=== PATIENT | female | born 1950 | race Caucasian/White ===

== ENCOUNTER 2017-01-11 06:18 | Inpatient (IN) | payer OTHER ==
[2016-12-12 07:59] VITALS: BMI 51.0
--- NOTE | 2016-12-12 08:40 | PAT Medication Instructions ---
Service Date Dec 12, 2016. Current Home Medication List Ezetimibe (Zetia), 5 MG PO HS Glipizide (Glipizide Er), 1 TAB PO BID Hydrochlorothiazide (Hydrochlorothiazide), 1 TAB PO QAM Latanoprost 0.005% Oph (Xalatan 0.005% Oph), 1 DROP OPB HS Lisinopril (Zestril), 40 MG PO HS Meloxicam (Mobic), Unknown Dose PO QAM Metformin Hcl (Glucophage), 1,000 MG PO BID Simvastatin (Zocor), 10 MG PO HS Medication Instructions For Your Scheduled Surgery - Hold the following medications 10 days prior to surgery per surgeon's instructions: Meloxicam (Mobic), Unknown Dose PO QAM - Hold the following medications 48 hours prior to surgery: Metformin Hcl (Glucophage), 1,000 MG PO BID - Hold the following medications the morning of surgery: Glipizide (Glipizide Er), 1 TAB PO BID Hydrochlorothiazide (Hydrochlorothiazide), 1 TAB PO QAM - Take the following medications as scheduled the night before surgery: Ezetimibe (Zetia), 5 MG PO HS Simvastatin (Zocor), 10 MG PO HS Glipizide (Glipizide Er), 1 TAB PO BID Latanoprost 0.005% Oph (Xalatan 0.005% Oph), 1 DROP OPB HS - Do not take the following medications the night before surgery: Lisinopril (Zestril), 40 MG PO HS If you have any questions please call us at [phone] or [phone] or [phone]
[2016-12-12 09:02] LABS: BASO % 0.3 %; BASO ABS # 0.02 K/uL (0-0.2); COMPLETE YES; EOS % 4.1 %; HEMATOCRIT 40.4 % (37-47); IG% 0.4 %; LYMPH % 36.2 %; LYMPH ABS # 2.74 K/uL (1.2-3.4); MEAN CELL VOLUME 88.2 fL (80-100); MEAN CORPUSCULAR HEMOGLOBIN 29.7 pg (25-34); MEAN CORPUSCULAR HGB CONC 33.7 g/dl (32-36); MONO % 6.6 %; NEUT % 52.4 %; PLATELET COUNT 224 K/uL (130-400); RED BLOOD COUNT 4.58 M/uL (4.2-5.4); WHITE BLOOD COUNT 7.57 K/uL (4.8-10.8)
--- NOTE | 2016-12-12 09:04 | DIAGNOSTIC IMAGING REPORT ---
CHEST PREADMISSION(PA/LAT) CLINICAL HISTORY: PAT preoperative evaluation COMPARISON STUDY: No previous studies for comparison. FINDINGS: The bones soft tissues and hemidiaphragms are normal. The cardiomediastinal silhouette is normal. The lungs are clear. The pulmonary vasculature is normal. IMPRESSION: Negative chest. Electronically signed by: Yony Kirk M.D. 12/12/2016 9:03 AM Dictated Date/Time: 12/12/2016 9:02 AM
[2016-12-12 09:19] LABS: PROTHROMBIN TIME (PATIENT) 10.2 SECONDS (9.0-12.0)
[2016-12-12 09:43] LABS: ESTIMATED AVERAGE GLUCOSE 237 mg/dl; HA1C FLAG Normal (Normal)
[2016-12-12 10:46] LABS: BUN/CREATININE RATIO 18.9 (10-20); C-REACTIVE PROTEIN 1.73 mg/dl (0-0.29); POTASSIUM 4.4 mmol/L (3.5-5.1)
[2016-12-12 10:49] LABS: CALCIUM 9.2 mg/dl (8.5-10.1)
[2016-12-12 10:56] LABS: BETA-HYDROXYBUTYRATE 1.63 mg/dL (0.2-2.81)
[2016-12-27 09:29] VITALS: BMI 51.1
--- NOTE | 2017-01-09 10:11 | History and Physical ---
History & Physical Documentation Date Jan 09, 2017. Chief Complaint Right knee pain HPI (Knee Pain) Pain Location: Anterior knee, Medial knee Duration: Years Adversely Affecting: ADL's, Work, Recreation Symptoms Include: + Pain, + Giving way History of Injury/Trauma: Uncertain Non-Surgical Therapies: Behavior modification, Weight management, Exercise program Mechanical Assistive Devices: other (cane), none Joint Injection: Steroid, Visco Prior Orthopedic Procedures: None Past Medical/Surgical History Diabetes Obesity with BMI of 51 HTN Elevated cholesterol Tubal Ligation Cholecystectomy Carpal Tunnel Release Additional History Hepatic Disease: No Endocrine Disorder: Yes Kidney Disease: No Hypertension: Yes Heart Disease: No Bleeding Tendencies: No Infectious Diseases: No Family History No Heart disease, No Pulmonary disease, No Anesthesia difficulties, No Bleeding tendencies Social History Smoking Status: Never Smoker Smokeless Tobacco Use: No Drug Use: none Marital Status: single Allergies Coded Allergies: Aspirin (Verified Adverse Reaction, Unknown, NOSEBLEEDS A CHILD, ) Home Medications Scheduled Ezetimibe (Zetia), 5 MG PO HS Glipizide (Glipizide Er), 1 TAB PO BID Hydrochlorothiazide (Hydrochlorothiazide), 1 TAB PO QAM Latanoprost 0.005% Oph (Xalatan 0.005% Oph), 1 DROP OPB HS Lisinopril (Zestril), 40 MG PO HS Meloxicam (Mobic), Unknown Dose PO QAM Metformin Hcl (Glucophage), 1,000 MG PO BID Simvastatin (Zocor), 10 MG PO HS Review of Systems Constitutional: No fever, No chills, No sweats, No weight loss, No weakness, No fatigue, No problem reported Respiratory: No cough, No sputum, No wheezing, No shortness of breath, No dyspnea on exertion, No dyspnea at rest, No hemoptysis, No problem reported Cardiovascular: No chest pain, No orthopnea, No PND, No edema, No claudication , No palpitations, No problem reported Genitourinary - Female: No dysuria, No urinary frequency, No urinary urgency, No urinary incontinence, No urinary retention, No hematuria, No dysmenorrhea, No menorrhagia, No metrorrhagia, No rash, No vaginal bleeding, No vaginal discharge, No vaginal itching, No vulvodynia, No , No problem reported Neurologic: No memory loss, No paralysis, No weakness, No numbness/tingling, No vertigo, No balance problems, No problem reported Physical Exam Skin: warm/dry, no rash Eyes: normal inspection, EOMI, sclerae normal ENT: normal ENT inspection Head: normocephalic, atraumatic Neck: supple, no adenopathy Respiratory/Chest: lungs clear Cardiovascular: regular rate, rhythm Abdomen / GI: normal bowel sounds Back: normal inspection Neurovascular: Warm, Dry, Normal perfusion Neurologic/Psych: no motor/sensory deficits Physical Exam (Knee) Inspection: + Effusion, + pertinent finding (Slight stasis changes) Gait: + Limp, + Antalgic Range of Motion: With crepitation Alignment: + Genu varum Tenderness: Medial joint line, Infrapatellar Radiology Plain Films: Osteophytes, Subchondral sclerosis, Subluxation Plain Films Joint Space: [id number], Severe narrowing Diagnosis & Plan Diagnosis & Plan (1) Advanced Right Knee DJD Plan: TKA Right TKR. RIsks and benefits explained. Increased risk due to obesity and diabetes. Patient aware and wants to proceed.
[2017-01-11] VITALS (7 sets, daily range): BP systolic 91–116; BP diastolic 53–75; PULSE 62–80; TEMP 36.7–36.8; O2SAT 95–99; BMI 51.0
[~2017-01-11] VITALS: Ht 154.9 cm; Wt 122.7 kg
[~2017-01-11 06:18] MED LIST: ACETAMINOPHEN 500 MG TAB PO SCH; BUPIVACAINE LIPOSOME 266 MG, BUPIVACAINE/EPINEPHRINE INJ 50 ML, SODIUM CHLORIDE 0.9% PF... INFIL SCH; CEFAZOLIN 2000 MG/60 ML D5W 60 ML IV SCH; CEFAZOLIN 3000 MG/65 ML D5W IV SCH; EZET10TA63 PO; FAMOTIDINE 20 MG TAB PO SCH; GABAPENTIN 300 MG CAP PO SCH; HYDR12.55 PO; INSU3INJ2 SC; LACTATED RINGER'S 1000ML IV SCH; LACTATED RINGER'S 500 ML IV SCH; LATA0.009 OPB; LISI40TA PO; MELO7.5T5 PO; METF1000 PO; METF500T PO; METOCLOPRAMIDE HCL 10 MG TAB PO SCH; SCOPOLAMINE 1.5 MG TDSY TD SCH; SIMV10TA2 PO; TRANEXAMIC ACID INJ 1,000 MG in SODIUM CHLORIDE 0.9% 100ML 100 ML IV SCH
--- NOTE | 2017-01-11 06:53 | History & Physical Bridge Note ---
H&P Re-Evaluation Bridge Note: I have examined the patient, reviewed the History & Physical and in the interval since the performance of the History & Physical I have noted the following changes of clinical significance: No changes noted
[2017-01-11] MEDS ORDERED: LACTATED RINGER'S 1000ML 1,000 ML IV SCH (07:00)
[2017-01-11] MEDS ORDERED: BUPIVACAINE 0.5 % 5 MG/1 ML PF 10ML VIAL ONE (07:09)
[2017-01-11] MEDS ORDERED: BUPIVACAINE 0.25% 30 ML VIAL ONE (07:09)
[2017-01-11] MEDS ORDERED: MIDAZOLAM HCL 1 MG/ML 2ML VIAL ONE (07:28)
[2017-01-11] MEDS ORDERED: BACITRACIN 50000 UNIT VIAL ONE (08:37)
[2017-01-11] MEDS ORDERED: SODIUM CHLORIDE 0.9% PF 50 ML VIAL ONE (08:37)
[2017-01-11] MEDS ORDERED: BUPIVACAINE/EPINEPHRINE 0.25% 1:200,000 30 ML VIAL ONE (08:37)
[2017-01-11] MEDS ORDERED: BUPIVACAINE LIPOSOME 1/3% 266 MG/20 ML VIAL INFIL ONE (08:38)
[2017-01-11] MEDS ORDERED: VANCOMYCIN HCL 1000MG/20ML VIAL ONE (08:38)
[2017-01-11] MEDS ORDERED: LIDOCAINE HCL 2% 2 ML VIAL (20MG/ML) ONE (08:55)
[2017-01-11] MEDS ORDERED: PROPOFOL IV EMULSION 10 MG/ML 20 ML VIAL IV ONE ×2 (08:55→10:32)
[2017-01-11] MEDS ORDERED: HYDROmorphone INJ 2 MG/ML SYR/VIAL IV PRN (09:15)
[2017-01-11] MEDS ORDERED: ONDANSETRON INJ 2 MG/ML 2 ML VIAL IV PRN ×2 (09:15→11:00)
[2017-01-11] MEDS ORDERED: PHENYLEPHRINE 100MCG/ML 5ML SYR IV PRN (09:15)
[2017-01-11] MEDS ORDERED: ATROPINE SULFATE 0.1 MG/ML 5ML SYR IV PRN (09:15)
[2017-01-11] MEDS ORDERED: KETOROLAC TROMETHAMINE 30 MG/ML VIAL IV. PRN (09:15)
[2017-01-11] MEDS ORDERED: EpHEDrine SULFATE INJ 50 MG/ML AMP IV PRN (09:15)
[2017-01-11] MEDS ORDERED: ZOLPIDEM TARTRATE 5 MG TAB PO PRN (11:00)
[2017-01-11] MEDS ORDERED: GLUCOSE 40% GEL 15 GM TUBE PO PRN (11:00)
[2017-01-11] MEDS ORDERED: ALUMINUM/MAGNESIUM/SIMETH (MAALOX MAX) 30 ML UDC PO PRN (11:00)
[2017-01-11] MEDS ORDERED: BISACODYL 10 MG SUPP PR PRN (11:00)
[2017-01-11] MEDS ORDERED: HYDROmorphone INJ 0.5 MG/0.5 ML SYR IV PRN (11:00)
[2017-01-11] MEDS ORDERED: METOCLOPRAMIDE HCL INJ 5 MG/ML 2 ML VIAL IV PRN (11:00)
[2017-01-11] MEDS ORDERED: SILVER SULFADIAZINE 1% CR 50 GM JAR EXT PRN (11:00)
[2017-01-11] MEDS ORDERED: DEXTROSE 50% 50 ML SYR IV PRN (11:00)
[2017-01-11] MEDS ORDERED: GLUCAGON FOR INJ 1 MG VIAL SQ PRN (11:00)
[2017-01-11] MEDS ORDERED: GLUCOSE 10 TABS/TUBE PO PRN (11:00)
--- NOTE | 2017-01-11 11:26 | DIAGNOSTIC IMAGING REPORT ---
RIGHT KNEE 1 OR 2 VIEWS ROUTINE CLINICAL HISTORY: AP/LATERAL IN PACU RIGHT KNEE Right postoperative evaluation COMPARISON: None. DISCUSSION: Status post total joint revision. There is a longstem tibial prosthesis. Good contact between prosthetic and underlying bone. Surgical drains in position. Expected soft tissue postoperative change. IMPRESSION: Anatomic alignment status post total right knee replacement The above report was generated using voice recognition software. It may contain grammatical, syntax or spelling errors. Electronically signed by: Yony Kirk M.D. 01/11/2017 11:24 AM Dictated Date/Time: 01/11/2017 11:24 AM
--- NOTE | 2017-01-11 12:46 | Anesthesiology Progress Note ---
Anesthesia Post Op Note Date & Time Jan 11, 2017 at 12:46 Vital Signs Pain Intensity: 0 Vital Signs Past 12 Hours Date Time Temp Pulse Resp B/P (MAP) Pulse Ox O2 Delivery O2 Flow Rate FiO2 01/11/17 12:37 72 12 98 01/11/17 12:37 36.4 73 17 115/61 (70) 97 Nasal Cannula 2 01/11/17 12:37 73 12 01/11/17 12:36 115/61 01/11/17 12:32 75 15 01/11/17 12:32 75 15 98 01/11/17 12:31 115/65 01/11/17 12:27 74 13 97 01/11/17 12:27 73 13 01/11/17 12:26 104/68 01/11/17 12:24 73 13 01/11/17 12:24 74 13 98 01/11/17 12:21 113/62 01/11/17 12:19 75 15 96 01/11/17 12:19 74 15 01/11/17 12:16 112/61 01/11/17 12:14 71 11 01/11/17 12:14 70 11 97 01/11/17 12:13 72 11 01/11/17 12:13 71 11 97 01/11/17 12:11 111/66 01/11/17 12:08 67 14 01/11/17 12:08 68 14 98 01/11/17 12:06 108/85 01/11/17 12:03 68 14 01/11/17 12:03 67 14 98 01/11/17 12:01 111/67 01/11/17 11:58 73 13 01/11/17 11:58 72 13 98 01/11/17 11:56 104/68 01/11/17 11:53 69 6 98 01/11/17 11:53 69 6 01/11/17 11:51 115/69 01/11/17 11:48 68 14 98 01/11/17 11:48 70 14 01/11/17 11:46 120/65 01/11/17 11:43 66 15 100 01/11/17 11:43 66 15 01/11/17 11:41 114/65 01/11/17 11:38 75 18 01/11/17 11:38 76 18 99 01/11/17 11:37 70 16 01/11/17 11:37 70 16 99 01/11/17 11:36 114/67 01/11/17 11:34 68 12 100 01/11/17 11:34 69 12 01/11/17 11:31 113/63 01/11/17 11:29 70 15 100 01/11/17 11:29 68 15 01/11/17 11:26 109/71 01/11/17 11:24 73 13 01/11/17 11:24 73 13 100 01/11/17 11:21 108/89 01/11/17 11:19 79 18 98 01/11/17 11:19 78 18 01/11/17 11:16 125/70 01/11/17 11:14 76 16 01/11/17 11:14 78 16 99 01/11/17 11:11 111/67 01/11/17 11:09 83 15 01/11/17 11:09 86 15 100 01/11/17 11:06 111/66 01/11/17 11:05 120/62 01/11/17 11:04 81 16 01/11/17 11:04 81 16 100 01/11/17 11:04 36.4 82 16 120/62 100 Mask 10 01/11/17 07:16 36.7 80 20 116/75 96 Room Air Notes Mental Status: alert / awake / arousable, participated in evaluation Pt Amnestic to Procedure: Yes Nausea / Vomiting: adequately controlled Pain: adequately controlled Airway Patency, RR, SpO2: stable & adequate BP & HR: stable & adequate Hydration State: stable & adequate Neuraxial Anesthesia: was administered, sensory block is resolving Anesthetic Complications: no major complications apparent
--- NOTE | 2017-01-11 13:53 | OPERATIVE REPORT ---
DATE OF OPERATION: 01/11/2017 PREOPERATIVE DIAGNOSIS: Right knee degenerative joint disease. POSTOPERATIVE DIAGNOSIS: Same. PROCEDURE PERFORMED: Right cemented posterior stabilized total knee arthroplasty. SURGEON: Dr. Jossue Perez. [employer]CHO[employer] COACH: Garcia Spain PA-C. COMPLICATIONS: None. ESTIMATED BLOOD LOSS: 50 mL. FLUID REPLACEMENT: 1400 mL crystalloid fluid replacement. TOURNIQUET TIME: 89 minutes at 350 mmHg. ANESTHESIA: Spinal with adductor canal block. DRAINS: None. SPECIMENS: Right knee sent for pathology. OPERATIVE INDICATIONS: The patient is a 66-year-old female who has had a long history of bilateral knee pain and discomfort, right side a bit worse than the left. She has been through extensive conservative treatment without adequate relief. She has attempted weight loss and has been somewhat successful, but unable to lose any more. X-rays showed advanced knee DJD. The patient elected to proceed with operative treatment. OPERATIVE FINDINGS: Operative findings revealed advanced right knee DJD. She had grade 4 [id number] disease of the medial femoral condyle and medial tibial plateau. She had wear of the medial tibial plateau. She did have grade 4 changes on the lateral side as well due to the tibial femoral subluxation in the notch area, particularly. She had a large joint effusion. She had a varus deformity to her knee. OPERATIVE IMPLANTS: Operative implants consisted of: 1. Biomet Vanguard 62.5 right posterior stabilized femoral component. 2. Biomet size 67 tibial tray with a 7.5 mm offset adapter and a 12 x 80 mm fluted stem with a small cruciate wing. 3. A 10 mm posterior stabilized polyethylene insert. 4. A 31 x 8 all poly patella. OPERATIVE PROCEDURE: The patient taken to the operating room, identified and placed on the operating table in supine position. All contact areas were appropriately padded. IV antibiotics were provided by the anesthesia team. A spinal anesthetic had been implemented in the holding area. Francis catheter was placed in sterile fashion. Right thigh tourniquet was then placed and the right lower extremity was then prepped and draped in usual sterile fashion. The right leg was elevated and exsanguinated with Esmarch and tourniquet was placed at 350 mmHg. An anterior approach to the right knee was then performed through a longitudinal incision centered over the patella. Sharp dissection was carried out through the subcutaneous tissues down to the level of the extensor mechanism. Medial parapatellar arthrotomy incision was made. Some subperiosteal dissection was carried out medially. The fat pad was resected from beneath the patellar tendon. The lateral patellofemoral ligament was released. The patella was everted and knee was flexed. The osteophytes were taken off the distal femur. The ACL and PCL were then released from the distal femur and the tibia subluxated anteriorly. I elected to use a stem in this patient due to her large size and significant deformity. The intercondylar eminence was excised. I then made a hole in the tibia and used an intramedullary canal finder to find the canal. We then reamed beginning with a size 10 and progressing up to a 13. I used the IM reji to cut the tibia to remove just about a millimeter of bone from the most deficient aspect of the medial tibial plateau. Tibia was then sized to a size 67. Some osteophytes were taken off posteromedially. We then used the 7.5 mm offset adapter and prepared the proximal tibia for the tibial tray. The cruciate punch was used to create a defect for the small cruciate wing. We then trialed the tibial tray. We could not fit this down and I overreamed and over punched several times. We downsized the tibial stem as well and eventually we could get it to fit appropriately with a 12 stem. I elected to use these implants. Of note, a small loose body from the posterior aspect of the femur did fall down the canal and was pushed down the canal and was irretrievable. Attention was then drawn to the femur. The distal femur was entered with a sharp drill bit. Intramedullary canal was suctioned. A right 5 degree valgus cutting guide was placed. Distal femoral cutting block was pinned in place. Distal femoral cut was made to take an additional 3 mm of bone off the distal femur. The femur was then sized to a size 62.5. The AP cutting block was pinned parallel to the epicondylar axis, which was 3 degrees of external rotation. The anterior cut, anterior chamfer, posterior cut, posterior chamfer cuts were made. Box cutting guide was placed and adjusted slightly lateral and the box cut was made. The knee was flexed. The remnants of the medial and lateral menisci were excised. The osteophytes were taken off the posterior aspect of the femur. Trial femoral component was placed. We then subluxated the knee. I then proceeded with trialing the knee and the 10 mm insert fit most appropriately. Attention was then drawn to the patella. The patella was cleaned of all soft tissues. Patella thickness measured 19 mm in thickness and was cut down to 12. The patella was then sized to a size 31. Lug holes were drilled for a 31 patella. Lateral osteophyte was removed. Patella button was placed. Knee was taken through range of motion and the patella tracked nicely with no thumbs test. Attention was then drawn toward placement of the permanent components. All trial components were removed. A bone plug was placed in the distal femur to limit blood loss. The knee was irrigated with copious amounts of pulsatile lavage solution. A double batch of Palacos G cement was mixed. A right size 62.5 posterior stabilized femoral component, size 67 tibial tray with a 80 x 12 mm offset stem with a 7.5 mm offset adapter and a small cruciate wing was placed. We just cemented the metaphyseal portion. All extraneous cement was removed. The 10 mm insert was placed. Knee was brought out into full extension. The patella was then cemented in place. The knee was brought in full extension until all cement hardened. A final cement check was then performed. I did inject the pericapsular tissues with 100 mL of a combination of 20 mL of Exparel, 30 mL of normal saline, 50 mL of 0.25% Marcaine with epinephrine. The patient did get 1 gram of tranexamic acid. The tourniquet was then let down for a tourniquet time 89 minutes. Hemostasis was assured with use of electrocautery. The wound was once again irrigated. The extensor mechanism was then closed combination of #1 PDS suture and #1 Vicryl suture in a [id number] fashion. Extensor mechanism was checked and found to be intact. Subcutaneous tissues were then closed with 2-0 Dexon suture in a buried interrupted fashion. Skin was closed skin kateryna. Leg was then cleaned and dried and a sterile dressing of Xeroform, 4 x 4, sterile cast padding and Fan bandage were applied. The patient then transferred to the recovery room in stable condition. The patient tolerated the procedure well with no complications. All needle and sponge counts were correct at the end of the operation. We did place an additional gram of vancomycin in her cement due to her elevated BMI and a fairly poorly controlled diabetes and therefore increased risk of infection. I attest to the content of the Intraoperative Record and any orders documented therein. Any exception s are noted below.
--- NOTE | 2017-01-11 14:13 | PROGRESS NOTE ---
DATE: 01/11/2017 DATE: 01/11/2017. SUBJECTIVE: A 66-year-old white female postop from a right total knee replacement. She is doing well. Not having any pain yet. Function is just returning in her legs. No chest pain or shortness of breath. Not feeling dizzy or lightheaded. OBJECTIVE: VITAL SIGNS: Temperature 36.8. Vital signs stable. PHYSICAL EXAMINATION: GENERAL: Reveals a pleasant elderly female sitting up in bed and talking to her family. She looks comfortable. LUNGS: Clear to auscultation. HEART: Regular rate and rhythm. ABDOMEN: Soft, nontender, nondistended. EXTREMITY EXAMINATION: Grossly neurovascularly intact except as follows: Examination of the right leg reveals the dressing to be clean, dry and intact. She can dorsiflex and plantarflex her foot appropriately. She has got brisk refill. Good distal pulses. X-RAYS: X-rays of the right knee from recovery room are reviewed. It shows a right cemented posterior stabilized total knee arthroplasty with a tibial stem. Also looks to be in good position. No signs of problems. ASSESSMENT: A 66-year-old white female postop from a right total knee replacement, doing well. She is pretty brittle diabetic. PLAN: 1. DVT prophylaxis including thigh-high TEDs, SCDs, and aspirin twice a day. 2. PT/OT. She can weightbear as tolerated. Right total knee protocol. 3. Pain control. Doing well with current pain regimen. 4. IV antibiotics x24 hours. 5. Diabetes. We are going to consult medicine to help with diabetic management. 6. Disposition. She is planning to be discharged and hopefully wants to go to [facility] for a brief rehab stay if she qualifies.
[2017-01-11] MEDS: KETOROLAC TROMETHAMINE 15 MG/ML VIAL IV. SCH ×2 (15:05→21:33)
[2017-01-11] MEDS: ACETAMINOPHEN 500 MG TAB PO SCH ×2 (15:06→21:32)
--- NOTE | 2017-01-11 15:55 | CONSULTATION REPORT ---
DATE OF CONSULTATION: 01/11/2017 DATE OF CONSULTATION: 01/11/2017. CHIEF COMPLAINT: Status post right total knee arthroplasty. HISTORY OF PRESENT ILLNESS: This is a 66-year-old female with past medical history significant for hypertension, hyperlipidemia, diabetes, morbid obesity, osteoarthritis, status post right total knee arthroplasty. She tolerated the procedure okay. She is having some pain in the right knee and thigh area. Denies any chest pain, no shortness of breath, no cough, no fever, no chills, no nausea, no vomiting, no abdominal pain, no headaches. No blurred visions. No feeling of hot or cold. Resting comfortably. ALLERGIES: ASPIRIN. PAST MEDICAL HISTORY: As mentioned above. PAST SURGICAL HISTORY: Cholecystectomy and ligation of oviduct. MEDICATIONS: The patient is on glipizide 5 mg p.o. t.i.d., simvastatin 10 mg p.o. daily, metformin 1000 mg p.o. b.i.d., hydrochlorothiazide 12.5 mg p.o. daily, lisinopril 40 mg p.o. daily, recently started on insulin. FAMILY HISTORY: Significant for father had cancer. Mother has Alzheimer's . Sister has obesity. SOCIAL HISTORY: , no smoking, no alcohol, no drug use. REVIEW OF SYMPTOMS: As per HPI. Rest of review of systems negative. PHYSICAL EXAMINATION: GENERAL: The patient is obese, not in distress. VITAL SIGNS: Temperature 36.8, pulse 73, respiratory rate 18, blood pressure 101/67, oxygen 98% on 2 liters. NECK: No JVD, no neck masses. CARDIOVASCULAR: S1, S2 heard, regular rate and rhythm, no murmur, no gallop. RESPIRATORY SYSTEM: Normal AP diameter. No accessory muscle use. No wheezing, no crackles. ABDOMEN: Soft, bowel sounds present. Nontender. No distention. CENTRAL NERVOUS SYSTEM: Nonfocal. EXTREMITIES: No edema. Status post right total knee arthroplasty. LABORATORY DATA: Unavailable at the present time. ASSESSMENT AND PLAN: This is a 66-year-old female status post right total knee arthroplasty. 1. Right total knee arthroplasty. Pain control, PT, OT and deep venous thrombosis prophylaxis as per orthopedics. Plan for rehab. 2. History of diabetes, recently started on insulin. Will continue home insulin and hold all p.o. medications. place on insulin sliding scale. We will monitor the blood sugars. 3. History of hypertension. Continue her home meds lisinopril/hydrochlorothiazide. Monitor the blood pressure. 4. History of hyperlipidemia. Continue statin. 5. Deep venous thrombosis prophylaxis and disposition as per orthopedics. MTDD
[2017-01-11] MEDS: CHECK SCOPOLAMINE PATCH PLACEMENT SCH ×2 (16:00→21:50)
[2017-01-11] MEDS ORDERED: TRANEXAMIC ACID INJ 1,000 MG in SODIUM CHLORIDE 0.9% 100ML 100 ML IV SCH (17:00)
[2017-01-11] MEDS ORDERED: INSULIN HUMAN REGULAR SC SCH (17:15)
[2017-01-11] MEDS: SODIUM CHLORIDE 0.9% 1000ML 1,000 ML IV SCH ×2 (17:38→17:47)
[2017-01-11] MEDS: FERROUS GLUCONATE 324 MG TAB PO SCH (17:53)
[2017-01-11] MEDS: INSULIN 70% ASPART PROTAMINE/30% ASPART SC SCH (17:55)
[2017-01-11] MEDS: CEFAZOLIN IV 2,000 MG in DEXTROSE 5% 50ML 50 ML IV SCH (18:24)
[2017-01-11] MEDS: INSULIN ASPART 100 UNITS/ML 3 ML PEN SC SCH ×2 (18:31→21:48)
[2017-01-11] MEDS: LATANOPROST 0.005% OP SOLN 2.5 ML BTL OPB SCH (21:31)
[2017-01-11] MEDS: TAPENTADOL ER 50 MG TABCR PO SCH (21:31)
[2017-01-11] MEDS: DOCUSATE SODIUM 100 MG CAP PO SCH (21:34)
[2017-01-11] MEDS: ASPIRIN 325 MG ECTAB PO SCH (21:34)
[2017-01-11] MEDS: LISINOPRIL 40 MG TAB PO SCH (21:34)
[2017-01-11] MEDS: SENNA 8.6 MG TAB PO SCH (21:35)
[2017-01-11] MEDS: SIMVASTATIN 10 MG TAB PO SCH (21:35)
[2017-01-11] MEDS: EZETIMIBE 10MG TAB PO SCH (21:35)
[2017-01-12] VITALS (7 sets, daily range): BP systolic 91–149; BP diastolic 58–79; PULSE 69–81; TEMP 36.8–37; O2SAT 93–98
[2017-01-12] MEDS: SODIUM CHLORIDE 0.9% 1000ML 1,000 ML IV SCH ×2 (00:09→07:35)
[2017-01-12] MEDS: CEFAZOLIN IV 2,000 MG in DEXTROSE 5% 50ML 50 ML IV SCH (02:12)
[2017-01-12] MEDS: KETOROLAC TROMETHAMINE 15 MG/ML VIAL IV. SCH ×4 (04:08→22:20)
[2017-01-12] MEDS: ACETAMINOPHEN 500 MG TAB PO SCH ×3 (05:47→21:40)
[2017-01-12 06:25] LABS: HEMATOCRIT 32.5 % (37-47); MEAN CELL VOLUME 86.2 fL (80-100); MEAN CORPUSCULAR HEMOGLOBIN 28.6 pg (25-34); MEAN CORPUSCULAR HGB CONC 33.2 g/dl (32-36); MEAN PLATELET VOLUME 10.5 fL (7.4-10.4); PLATELET COUNT 178 K/uL (130-400); RED BLOOD COUNT 3.77 M/uL (4.2-5.4); WHITE BLOOD COUNT 8.12 K/uL (4.8-10.8)
[2017-01-12 07:02] LABS: BUN/CREATININE RATIO 21.3 (10-20); CREATININE 0.98 mg/dl (0.60-1.20)
[2017-01-12] MEDS: INSULIN ASPART 100 UNITS/ML 3 ML PEN SC SCH ×4 (08:00→21:00)
[2017-01-12] MEDS: CHECK SCOPOLAMINE PATCH PLACEMENT SCH ×2 (08:00→16:04)
[2017-01-12] MEDS ORDERED: FRRG PO (08:29)
[2017-01-12] MEDS ORDERED: ASPEC325 PO (08:29)
[2017-01-12] MEDS ORDERED: ACET-24 PO (08:29)
[2017-01-12] MEDS ORDERED: RXC5 PO (08:29)
[2017-01-12] MEDS ORDERED: MORP-157 PO (08:29)
--- NOTE | 2017-01-12 08:31 | Discharge Instructions ---
Discharge Instructions Date of Service Jan 12, 2017. Admission Reason for Admission: Right Knee Degenerative Joint Disease Discharge Discharge Diagnosis / Problem: Right Knee Replacement Discharge Goals Goal(s): Decrease discomfort, Improve function, Increase independence, Improve disease control, Therapeutic intervention Activity Recommendations Activity Level: Assistance Required Therapies: Physical Therapy, Occupational Therapy Weightbearing Status: Right weightbearing . Additional Information Patient informed of condition: Yes Advance Directives: No DNR: No Level of Care: Acute Rehab Communicable Disease: No Prognosis: Improving Instructions / Follow-Up Instructions / Follow-Up ACTIVITY RECOMMENDATIONS: Physical Therapy: * You will go to physical therapy three times each week for four to six weeks after your surgery in order to regain your knee range of motion and to retrain your knee to work properly. * It is just as important to make sure you are getting your knee perfectly straight as it is to regain your knee bend. * Taking a pain pill an hour before therapy can help you have a more productive and comfortable therapy session. Home Exercise: * You were shown a series of exercises (heel props, heel slides, etc.) in the hospital. Do these exercises three to four times each day including the exercises you were shown in physical therapy. Walking: * Get up and walk several times each day. For the first four weeks, try not to stand or walk for more than one hour at a time. If you do stand or walk for more than one hour, you will not hurt anything, but your knee and leg will likely swell. * As you feel comfortable, you may change from the walker or crutches to a cane and then to independent walking. MEDICATIONS: New Medicine: * You will likely be taking one or more of these medications: 1. MS Contin - A long-acting pain medication. Take 1 tablet twice a day for the first ten days to decrease your baseline level of pain. 2. Oxycodone - A quick and shorter-acting pain medication. Take one to two tablets every four to six hours to lessen your pain. 3. Iron Sulfate - Take three times each day for the month after surgery to help you replace the blood lost during surgery. 4. Aspirin - Thins your blood to lessen the chance of forming a blood clot. * The most common side effects of pain medicine and iron are nausea and constipation. If nausea or constipation is too much of a problem or if you have any questions about your new medicines or doses, call [facility] at . We will try to help you manage these issues. VERY IMPORTANT TO READ AND REVIEW" Pain: * The immediate post-operative period after knee replacement surgery is often quite painful. * You are given a prescription for pain medicine. You should take it, as directed, when you need it, especially before physical therapy and before going to bed. Pain that interferes with sleep is very common and can last several months. * You will likely need pain medicine for the first four to six weeks. It will not stop all of the pain. The pain will lessen and as you feel better, you may change to milder pain medicine such as Tylenol. * The most common side effects of pain medicine are nausea and constipation, so don't take more than you need. SPECIAL CARE INSTRUCTIONS: TEDs/Elastic Stockings: * The white elastic stockings help limit swelling and prevent blood clots from forming in your legs. The more you wear them, the more they work. * Wear them for six weeks after knee replacement surgery and four weeks after partial knee replacement. Prevention of Infection: * Take antibiotics one hour before any dental cleaning, dental work, urological procedure, gastrointestinal procedure or any invasive surgery in order to prevent your new joint from getting infected. * You may get the antibiotics from the doctor performing the procedure or you may call our office at before and we will call in a prescription to the pharmacy of your choice. Things to Watch For: * Drainage from the incision site that occurs more than one week after your surgery. * Severely increased knee/leg pain or swelling. * Increased redness at the incision site. * Fever above 102 degrees Fahrenheit. * Unusual chest pain or shortness of breath. * Unusual pain or burning with urination. Call [facility] at with any of the above problems or if you have any questions about your medicines or recovery. FOLLOW UP VISIT: Make an appointment to see your doctor for approximately two weeks after surgery for a progress check and staple removal by calling the office at . Current Hospital Diet Patient's current hospital diet: Diabetes Type 2 Diet Discharge Diet Recommended Diet: Diabetes Type 2 Diet Procedures Procedures Performed: Right total knee arthroplasty Pending Studies Studies pending at discharge: no Laboratory Results Hemoglobin A1c Test 12/12/16 08:30 Range/Units Estimated Average Glucose 237 mg/dl Hemoglobin A1c 9.9 H 4.5-5.6 % Medical Emergencies . Who to Call and When: Medical Emergencies: If at any time you feel your situation is an emergency, please call 911 immediately. . Non-Emergent Contact Non-Emergency issues call your: Surgeon . . "Provider Documentation" section prepared by Jossue Perez. . Core Measure Problem Core Measures: None
[2017-01-12] MEDS: DOCUSATE SODIUM 100 MG CAP PO SCH ×2 (08:56→21:40)
[2017-01-12] MEDS: HYDROCHLOROTHIAZIDE 25 MG TAB PO SCH (08:56)
[2017-01-12] MEDS: TAPENTADOL ER 50 MG TABCR PO SCH ×2 (08:56→21:40)
[2017-01-12] MEDS: FERROUS GLUCONATE 324 MG TAB PO SCH ×3 (08:56→17:48)
[2017-01-12] MEDS: PANTOprazole SOD 40 MG TAB PO SCH (08:56)
[2017-01-12] MEDS: ASPIRIN 325 MG ECTAB PO SCH ×2 (08:56→21:40)
[2017-01-12] MEDS: MULTIVITAMIN TAB PO SCH (08:56)
[2017-01-12] MEDS: INSULIN 70% ASPART PROTAMINE/30% ASPART SC SCH ×2 (08:57→17:50)
--- NOTE | 2017-01-12 09:47 | PROGRESS NOTE ---
DATE: 01/12/2017 DATE: 01/12/2017. SUBJECTIVE: A 66-year-old white female postop day 1 from right knee replacement. She is doing well. Not having much pain. Denies any chest pain, shortness of breath. Not feeling dizzy or lightheaded. OBJECTIVE: VITAL SIGNS: Temperature 36.9. Vital signs stable. PHYSICAL EXAMINATION: GENERAL: Pleasant, middle-aged female. She is sitting up in bed, looks pretty comfortable. LUNGS: Clear to auscultation. HEART: Regular rate and rhythm. ABDOMEN: Soft, nontender, nondistended. EXTREMITY EXAMINATION: Grossly neurovascularly intact except as follows: Examination of the right leg reveals the dressing to be clean, dry and intact. Leg is well aligned. She can dorsiflex and plantarflex her foot appropriately. She is neurologically intact. LABORATORY DATA: Hemoglobin 10.8, hematocrit 32.5. Electrolytes are stable. ASSESSMENT: A 66-year-old white female postop day 1 from a right knee replacement, doing pretty well. Pain is controlled. Blood glucoses have been under reasonable control. PLAN: 1. DVT prophylaxis including thigh-high TEDs, SCDs, and aspirin twice a day. 2. PT/OT. Weightbearing as tolerated. Right total knee protocol. 3. Pain control. Doing well with current pain regimen. 4. Diabetes. Medicine is following. Blood glucoses have been under good control. 5. Disposition. She is hoping to be discharged to [facility] for a brief rehab stay.
[2017-01-12] MEDS: OXYCODONE HCL IR 5 MG TAB (IMMEDIATE RELEASE) PO PRN (12:59)
--- NOTE | 2017-01-12 14:44 | Progress Note ---
Internal Med Progress Note Date of Service: Jan 12, 2017. Provider Documentation: SUBJECTIVE: Patient is doing well post operatively. Pain is well controlled No chest pain, SOB, fever, chills , nausea, vomiting OBJECTIVE: Vital Signs-as noted below Exam: GENERAL: Obese, AAOX3, no distress CARDIOVASCULAR: S1, S2 heard, regular rate and rhythm, no murmur. RESPIRATORY SYSTEM: AEBE, No wheezing, no crackles. ABDOMEN: Soft, bowel sounds present. Nontender. No distention. EXTREMITIES: No edema. Status post right total knee arthroplasty. Lab data as noted below. ASSESSMENT & PLAN: ASSESSMENT AND PLAN: This is a 66-year-old female status post right total knee arthroplasty. S/P RIGHT TOTAL KNEE ARTHROPLASTY POD # 1 -Pain control, PT/OT, Wound care per primmary team -H & H monitoring post operatively - stable DM-2 -Basal insulin as at home, ISS -Hold PO medications HTN- -Continue with home medications- Lisinopril, HCTZ HYPERLIPIDEMIA -Continue with statin DVT PROPHYLAXIS -Aspirin 325 mg PO BID DISPOSITION Per primary team Vital Signs: Date Time Temp Pulse Resp B/P (MAP) Pulse Ox O2 Delivery O2 Flow Rate FiO2 01/12/17 13:24 36.9 72 18 121/76 (91) 93 Room Air 01/12/17 12:49 81 95 01/12/17 08:22 36.9 74 18 106/66 (79) 95 Room Air 01/12/17 08:00 Room Air 01/12/17 04:02 37.0 72 14 91/58 (69) 98 Room Air 01/12/17 00:11 37.0 72 16 94/60 (71) 96 Room Air 01/11/17 21:00 Room Air 01/11/17 19:54 36.7 74 18 100/63 (75) 95 Room Air 01/11/17 16:00 36.8 73 18 110/72 (85) 99 Nasal Cannula 3.0 01/11/17 15:10 36.7 62 18 109/69 (82) 99 Room Air 3.0 Lab Results: Results Past 24 Hours Test 01/11/17 17:07 01/11/17 21:22 01/12/17 06:03 01/12/17 11:54 Range/Units Bedside Glucose 184 181 178 70-90 mg/dl White Blood Count 8.12 4.8-10.8 K/uL Red Blood Count 3.77 4.2-5.4 M/uL Hemoglobin 10.8 12.0-16.0 g/dL Hematocrit 32.5 37-47 % Mean Corpuscular Volume 86.2 80-100 fL Mean Corpuscular Hemoglobin 28.6 25-34 pg Mean Corpuscular Hemoglobin Concent 33.2 32-36 g/dl RDW Standard Deviation 43.5 36.4-46.3 fL RDW Coefficient of Variation 13.9 11.5-14.5 % Platelet Count 178 130-400 K/uL Mean Platelet Volume 10.5 7.4-10.4 fL Sodium Level 141 136-145 mmol/L Potassium Level 4.0 3.5-5.1 mmol/L Chloride Level 109 98-107 mmol/L Carbon Dioxide Level 26 21-32 mmol/L Anion Gap 6.0 3-11 mmol/L Blood Urea Nitrogen 21 7-18 mg/dl Creatinine 0.98 0.60-1.20 mg/dl Est Creatinine Clear Calc Drug Dose 70.2 ml/min Estimated GFR () 70.2 Estimated GFR (Non- 60.5 BUN/Creatinine Ratio 21.3 10-20 Random Glucose 144 70-99 mg/dl Calcium Level 8.0 8.5-10.1 mg/dl
[2017-01-12] MEDS: LATANOPROST 0.005% OP SOLN 2.5 ML BTL OPB SCH (21:00)
[2017-01-12] MEDS: LISINOPRIL 40 MG TAB PO SCH (21:40)
[2017-01-12] MEDS: SIMVASTATIN 10 MG TAB PO SCH (21:40)
[2017-01-12] MEDS: SENNA 8.6 MG TAB PO SCH (21:40)
[2017-01-12] MEDS: EZETIMIBE 10MG TAB PO SCH (21:40)
[2017-01-13] MEDS: CHECK SCOPOLAMINE PATCH PLACEMENT SCH
[2017-01-13] MEDS: KETOROLAC TROMETHAMINE 15 MG/ML VIAL IV. SCH ×2 (03:56→09:52)
[2017-01-13] MEDS: ACETAMINOPHEN 500 MG TAB PO SCH ×3 (05:56→22:29)
[2017-01-13 06:25] VITALS: BP 111/75; PULSE 78; TEMP 36.8; O2SAT 96
[2017-01-13] MEDS: INSULIN ASPART 100 UNITS/ML 3 ML PEN SC SCH ×4 (07:14→21:00)
[2017-01-13] MEDS: OXYCODONE HCL IR 5 MG TAB (IMMEDIATE RELEASE) PO PRN (07:46)
[2017-01-13] MEDS: TAPENTADOL ER 50 MG TABCR PO SCH ×2 (07:46→22:26)
[2017-01-13] MEDS: FERROUS GLUCONATE 324 MG TAB PO SCH ×3 (07:47→17:50)
[2017-01-13] MEDS: HYDROCHLOROTHIAZIDE 25 MG TAB PO SCH (07:47)
[2017-01-13] MEDS: DOCUSATE SODIUM 100 MG CAP PO SCH ×2 (07:47→22:27)
[2017-01-13] MEDS: PANTOprazole SOD 40 MG TAB PO SCH (07:47)
[2017-01-13] MEDS: ASPIRIN 325 MG ECTAB PO SCH ×2 (07:47→22:26)
[2017-01-13] MEDS: INSULIN 70% ASPART PROTAMINE/30% ASPART SC SCH ×2 (07:53→18:17)
[2017-01-13 09:41] VITALS: BP 144/79; PULSE 95; O2SAT 98
[2017-01-13] MEDS: MULTIVITAMIN TAB PO SCH (09:52)
--- NOTE | 2017-01-13 11:18 | PROGRESS NOTE ---
DATE: 01/13/2017 SUBJECTIVE: This 66-year-old female postop day #2 from a right knee replacement. She is doing well. Pain is controlled. Therapy has gone reasonably well. No chest pain or shortness of breath. Not feeling dizzy or lightheaded. OBJECTIVE: VITAL SIGNS: Temperature 36.8. Vital signs stable. GENERAL: Reveals a pleasant, middle-aged female. She is sitting up at her bedside chair and looks comfortable. LUNGS: Clear to auscultation. HEART: Regular rate and rhythm. ABDOMEN: Soft, nontender, nondistended. EXTREMITIES: Grossly neurovascularly intact except as follows: Examination of the right leg reveals the dressing to be clean, dry and intact. No drainage. She can dorsiflex and plantarflex her foot appropriately. Calf is soft and supple. She is neurologically intact. ASSESSMENT: A 66-year-old white female postop day #2 from a right knee replacement, doing well. Pain is controlled. Blood glucoses have been well controlled. PLAN: 1. DVT prophylaxis including thigh-high TEDs, SCDs, and aspirin twice a day. 2. PT/OT. She can weightbear as tolerated. Right total knee protocol. 3. Pain control, doing well with current pain regimen. 4. Diabetes, well controlled with current regimen. Medicine is following. 5. Disposition: She is hoping to be discharged to [facility]. Currently waiting for approval or denial. If not, will consider a long term facility, but may consider home health. CIARA
--- NOTE | 2017-01-13 11:24 | Progress Note ---
Internal Med Progress Note Date of Service: Jan 13, 2017. Provider Documentation: SUBJECTIVE: Patient is doing well post operatively. Pain is well controlled No chest pain, SOB, fever, chills , nausea, vomiting OBJECTIVE: Vital Signs-as noted below Exam: GENERAL: Obese, AAOX3, no distress CARDIOVASCULAR: S1, S2 heard, regular rate and rhythm, no murmur. RESPIRATORY SYSTEM: AEBE, No wheezing, no crackles. ABDOMEN: Soft, bowel sounds present. Nontender. No distention. EXTREMITIES: No edema. Status post right total knee arthroplasty. Lab data as noted below. ASSESSMENT & PLAN: ASSESSMENT AND PLAN: This is a 66-year-old female status post right total knee arthroplasty. S/P RIGHT TOTAL KNEE ARTHROPLASTY POD # 2 -Pain control, PT/OT, Wound care per primmary team -H & H monitoring post operatively - stable DM-2 -Recently diagnosed. HbA1C is 9.9 -On Insulin Novolog 70/30 18 units q AM and 26 units q PM, ISS -Hold PO medications- metformin -Diabetes education consult placed as patient recently diagnosed with DM2 and very confused about her insulin HTN- -Continue with home medications- Lisinopril, HCTZ HYPERLIPIDEMIA -Continue with statin DVT PROPHYLAXIS -Aspirin 325 mg PO BID DISPOSITION Per primary team Vital Signs: Date Time Temp Pulse Resp B/P (MAP) Pulse Ox O2 Delivery O2 Flow Rate FiO2 01/13/17 09:41 95 98 01/13/17 08:00 Room Air 01/13/17 06:25 36.8 78 16 111/75 (87) 96 Room Air 01/12/17 23:48 36.9 78 16 116/74 (88) 97 Room Air 01/12/17 19:40 Room Air 01/12/17 15:13 36.8 69 18 110/70 (83) 97 Room Air 01/12/17 13:24 36.9 72 18 121/76 (91) 93 Room Air 01/12/17 12:49 81 95 Lab Results: Results Past 24 Hours Test 01/12/17 11:54 01/12/17 16:57 01/12/17 20:33 01/13/17 06:23 Range/Units Bedside Glucose 178 159 107 122 70-90 mg/dl
[2017-01-13 15:15] VITALS: BP 93/58; PULSE 65; TEMP 36.8; O2SAT 98
[2017-01-13 15:17] VITALS: BP 91/61
[2017-01-13] MEDS: LATANOPROST 0.005% OP SOLN 2.5 ML BTL OPB SCH (22:26)
[2017-01-13] MEDS: EZETIMIBE 10MG TAB PO SCH (22:27)
[2017-01-13] MEDS: SENNA 8.6 MG TAB PO SCH (22:28)
[2017-01-13] MEDS: SIMVASTATIN 10 MG TAB PO SCH (22:28)
[2017-01-13] MEDS: LISINOPRIL 40 MG TAB PO SCH (22:31)
[2017-01-14] MEDS: OXYCODONE HCL IR 5 MG TAB (IMMEDIATE RELEASE) PO PRN ×5 (00:07→23:46)
[2017-01-14 00:11] VITALS: BP 130/78; PULSE 80; TEMP 37.1; O2SAT 95
[2017-01-14] MEDS: ACETAMINOPHEN 500 MG TAB PO SCH ×3 (05:47→21:47)
[2017-01-14] MEDS: MAGNESIUM HYDROXIDE SUSP 30 ML UDC PO PRN ×2 (06:35→14:05)
[2017-01-14 06:56] VITALS: BP 115/71; PULSE 82; TEMP 36.8; O2SAT 96
--- NOTE | 2017-01-14 07:59 | PROGRESS NOTE ---
DATE: 01/14/2017 SUBJECTIVE: A 66-year-old white female, postop day 3 from a right total knee replacement. She is doing pretty well. Quads are a little bit more sore this morning. No chest pain or shortness of breath. Not feeling dizzy or lightheaded. OBJECTIVE: VITAL SIGNS: Temperature is 36.8. Vital signs stable. PHYSICAL EXAMINATION: GENERAL: Reveals a pleasant elderly female. She is sitting up in her bedside chair and looks pretty comfortable. EXTREMITIES: Examination of the right leg reveals the dressing to be clean, dry and intact. Leg is well aligned. She can dorsiflex and plantarflex her foot appropriately. LABORATORY DATA: Blood glucoses have been in the mid 100s. ASSESSMENT: A 66-year-old white female, postop day 3 from right knee replacement, doing well. Diabetes is under good control. She is neurologically intact. Pain is relatively well controlled. PLAN: 1. DVT prophylaxis, including thigh-high TEDs, SCDs, and aspirin twice a day. 2. PT/OT. Weightbearing as tolerated. Right total knee protocol. 3. Pain control, doing well with current pain regimen. 4. Diabetes, well controlled. 5. Disposition: Plan to discharge to [facility] later today.
[2017-01-14] MEDS: FERROUS GLUCONATE 324 MG TAB PO SCH ×3 (08:30→17:45)
[2017-01-14] MEDS: MULTIVITAMIN TAB PO SCH (08:46)
[2017-01-14] MEDS: ASPIRIN 325 MG ECTAB PO SCH ×2 (08:47→21:49)
[2017-01-14] MEDS: HYDROCHLOROTHIAZIDE 25 MG TAB PO SCH (08:47)
[2017-01-14] MEDS: PANTOprazole SOD 40 MG TAB PO SCH (08:47)
[2017-01-14] MEDS: DOCUSATE SODIUM 100 MG CAP PO SCH ×2 (08:47→21:45)
[2017-01-14 08:55] VITALS: Ht 154.9 cm; Wt 122.7 kg
[2017-01-14] MEDS: INSULIN ASPART 100 UNITS/ML 3 ML PEN SC SCH ×4 (08:56→21:55)
[2017-01-14] MEDS: INSULIN 70% ASPART PROTAMINE/30% ASPART SC SCH ×2 (08:58→19:52)
[2017-01-14] MEDS: TAPENTADOL ER 50 MG TABCR PO SCH ×2 (08:59→21:00)
--- NOTE | 2017-01-14 09:24 | Anesthesiology Progress Note ---
Anesthesia Post Op Note Date & Time Jan 14, 2017 at 09:23 Vital Signs Pain Intensity: 2.0 Vital Signs Past 12 Hours Date Time Temp Pulse Resp B/P (MAP) Pulse Ox O2 Delivery O2 Flow Rate FiO2 01/14/17 06:56 36.8 82 18 115/71 (86) 96 Room Air 01/14/17 00:11 37.1 80 16 130/78 (95) 95 Room Air 01/13/17 23:56 Room Air Notes Mental Status: alert / awake / arousable, participated in evaluation Pt Amnestic to Procedure: Yes Nausea / Vomiting: adequately controlled Pain: adequately controlled Airway Patency, RR, SpO2: stable & adequate BP & HR: stable & adequate Hydration State: stable & adequate Neuraxial Anesthesia: was administered, sensory block resolved Anesthetic Complications: no major complications apparent
--- NOTE | 2017-01-14 12:05 | Progress Note ---
Internal Med Progress Note Date of Service: Jan 14, 2017. Provider Documentation: SUBJECTIVE: Patient is doing well post operatively. Pain is well controlled No chest pain, SOB, fever, chills , nausea, vomiting No BM yet OBJECTIVE: Vital Signs-as noted below Exam: GENERAL: Obese, AAOX3, no distress CARDIOVASCULAR: S1, S2 heard, regular rate and rhythm, no murmur. RESPIRATORY SYSTEM: AEBE, No wheezing, no crackles. ABDOMEN: Soft, bowel sounds present. Nontender. No distention. EXTREMITIES: No edema. Status post right total knee arthroplasty. Lab data as noted below. ASSESSMENT & PLAN: ASSESSMENT AND PLAN: This is a 66-year-old female status post right total knee arthroplasty. S/P RIGHT TOTAL KNEE ARTHROPLASTY POD # 3 -Pain control, PT/OT, Wound care per primmary team -H & H monitoring post operatively - stable DM-2 -Recently diagnosed. HbA1C is 9.9 -On Insulin Novolog 70/30 18 units q AM and 26 units q PM, ISS -Hold PO medications- metformin -Diabetes education consult placed as patient recently diagnosed with DM2 and very confused about her insulin HTN- -Continue with home medications- Lisinopril, HCTZ HYPERLIPIDEMIA -Continue with statin DVT PROPHYLAXIS -Aspirin 325 mg PO BID x 4 weeks post surgery DISPOSITION Per primary team Likely HS today Vital Signs: Date Time Temp Pulse Resp B/P (MAP) Pulse Ox O2 Delivery O2 Flow Rate FiO2 01/14/17 07:41 Room Air 01/14/17 06:56 36.8 82 18 115/71 (86) 96 Room Air 01/14/17 00:11 37.1 80 16 130/78 (95) 95 Room Air 01/13/17 23:56 Room Air 01/13/17 16:10 Room Air 01/13/17 15:17 91/61 (71) 01/13/17 15:15 36.8 65 18 93/58 (70) 98 Room Air Lab Results: Results Past 24 Hours Test 01/13/17 16:47 01/13/17 20:48 01/14/17 07:56 Range/Units Bedside Glucose 148 117 159 70-90 mg/dl
[2017-01-14 15:13] VITALS: PULSE 77; TEMP 36.8; O2SAT 99
[2017-01-14 15:15] VITALS: BP 111/72
[2017-01-14] MEDS ORDERED: BISACODYL 10 MG SUPP PR PRN (21:00)
[2017-01-14] MEDS: LATANOPROST 0.005% OP SOLN 2.5 ML BTL OPB SCH (21:44)
[2017-01-14] MEDS: LISINOPRIL 40 MG TAB PO SCH (21:48)
[2017-01-14] MEDS: SENNA 8.6 MG TAB PO SCH (21:50)
[2017-01-14] MEDS: SIMVASTATIN 10 MG TAB PO SCH (21:50)
[2017-01-14] MEDS: EZETIMIBE 10MG TAB PO SCH (21:52)
[2017-01-14 23:30] VITALS: BP 110/68; PULSE 72; TEMP 37; O2SAT 98
[2017-01-15] MEDS: ACETAMINOPHEN 500 MG TAB PO SCH ×2 (06:04→13:50)
[2017-01-15 07:46] VITALS: BP 132/74; PULSE 81; TEMP 37.3; O2SAT 96
[2017-01-15 08:00] VITALS: BP 91/55; PULSE 74
[2017-01-15 08:12] VITALS: O2SAT 88
[2017-01-15] MEDS: INSULIN ASPART 100 UNITS/ML 3 ML PEN SC SCH ×2 (08:28→12:31)
[2017-01-15] MEDS: INSULIN 70% ASPART PROTAMINE/30% ASPART SC SCH (08:29)
[2017-01-15] MEDS: DOCUSATE SODIUM 100 MG CAP PO SCH (08:43)
[2017-01-15] MEDS: ASPIRIN 325 MG ECTAB PO SCH (08:43)
[2017-01-15] MEDS: HYDROCHLOROTHIAZIDE 25 MG TAB PO SCH (08:46)
[2017-01-15] MEDS: TAPENTADOL ER 50 MG TABCR PO SCH (08:47)
[2017-01-15] MEDS: MULTIVITAMIN TAB PO SCH (08:47)
[2017-01-15] MEDS: PANTOprazole SOD 40 MG TAB PO SCH (08:48)
[2017-01-15] MEDS: OXYCODONE HCL IR 5 MG TAB (IMMEDIATE RELEASE) PO PRN ×2 (08:49→13:43)
[2017-01-15] MEDS ORDERED: POLYETHYLENE (MIRALAX) 17 GM PACK PO SCH (09:00)
[2017-01-15] MEDS: FERROUS GLUCONATE 324 MG TAB PO SCH ×2 (09:11→12:30)
[2017-01-15 09:17] VITALS: O2SAT 96
[2017-01-15 12:47] VITALS: BP 132/74; PULSE 81; TEMP 37.3; O2SAT 96
--- NOTE | 2017-01-15 13:52 | PROGRESS NOTE ---
DATE: 01/15/2017 SUBJECTIVE: A 66-year-old female postop day #4 from a right knee replacement. She is doing well. Pain has been manageable. Therapy has gone pretty well. She is waiting for approval from [facility]. No chest pain or shortness of breath. OBJECTIVE: VITAL SIGNS: Temperature 37.3. Vital signs stable. GENERAL: Physical examination reveals a pleasant, middle-aged female. She is sitting up in her bed and looks quite comfortable. EXTREMITIES: Examination of the right leg reveals the dressing to be clean, dry and intact. Leg is well aligned. She can dorsiflex and plantarflex her foot appropriately. NEUROLOGIC: She is neurologically intact. ASSESSMENT: A 66-year-old female postop day #4 from a right knee replacement, doing pretty well. Really just waiting for placement. Pain is controlled. She is neurologically intact. PLAN: 1. DVT prophylaxis including thigh-high TEDs, SCDs, and aspirin twice a day. 2. PT/OT. Weightbearing as tolerated. Left total knee protocol. 3. Pain control, doing well with current pain regimen. 4. Medical management as per the medicine service. 5. Disposition: Plan to discharge to [facility] later today. CIARA
--- NOTE | 2017-01-29 13:28 | DISCHARGE SUMMARY ---
ADMITTING PHYSICIAN AND SURGEON: Dr. Perez. ADMITTING DIAGNOSIS: Right knee degenerative joint disease. SURGERY PERFORMED: Right total knee arthroplasty. SECONDARY DIAGNOSES: Diabetes, obesity, hypertension, elevated cholesterol. CONSULTS: Dr. Clemons postoperative medical management. HISTORY AND PHYSICAL EXAMINATION: Well documented in the patient's chart. HOSPITAL COURSE: The patient was admitted on 01/11/2017 underwent total knee arthroplasty, tolerated the procedure well. There were no complications. She was transferred to the PACU postoperatively and later to the orthopedic floor for further care. She was given Ancef for antibiotic prophylaxis, ALFRED stockings, SCDs and aspirin for DVT prophylaxis. Hemoglobin, hematocrit and vital signs were monitored during her hospital stay and remained stable. She developed some mild postoperative anemia, did not require any blood transfusions. There were no complications. By postoperative day 4, she was tolerating a diabetic diet. Pain was controlled with oral pain medicine. She was participating in physical therapy and had no signs or symptoms of deep vein thrombosis. On postop day 4, she was transferred to [facility] in good condition. She was given printed discharge instructions including new prescriptions for extra strength Tylenol, aspirin 325 mg b.i.d., iron supplement and oxycodone. Continue her home medications, continue physical therapy, weightbearing as tolerated and ALFRED stockings. Follow up with Dr. Perez in 10-12 days or sooner if there are any problems or concerns.
== END 2017-01-15 14:10 | DRG 470 ==
LOC: C.ACU 06:18 → C.3E 06:50 → ENRESERV 12:20
PROVIDERS: ADMIT Orthopaedic Surgery Sports Medicine; ATTEND Orthopaedic Surgery Sports Medicine
PROC: 0SRC0J9 Replacement of Right Knee Joint with Synthetic Substitute, Cemented, Open Approach (ICD-10-PCS; principal; 2017-01-11 08:50)
DX: M17.11 Unilateral primary osteoarthritis, right knee (principal); Z68.43 Body mass index [BMI] 50.0-59.9, adult; E11.65 Type 2 diabetes mellitus with hyperglycemia; E66.01 Morbid (severe) obesity due to excess calories; I10 Essential (primary) hypertension; E78.00 Pure hypercholesterolemia, unspecified; Z79.84 Long term (current) use of oral hypoglycemic drugs; Z79.899 Other long term (current) drug therapy